=== PATIENT | female | born 1980 | race Caucasian/White ===

== ENCOUNTER 2024-01-23 20:01 | Emergency (ER) | payer OTHER ==
[~2024-01-23] VITALS: Wt 74.1 kg
[2024-01-23] MEDS ORDERED: NS 1,000 ML IV SCH (20:30)
[2024-01-23] MEDS ORDERED: droPERidol 2.5 MG/ML 2 ML VIAL IV ONE (20:30)
[2024-01-23 21:03] LABS: BASO # 0.01 K/mm3 (0.02-0.10); HEMATOCRIT 31.9 % (37.0-47.0); HEMOGLOBIN 9.2 g/dL (12.5-16.0); MEAN CELL VOLUME 73 fl (78-100); MEAN CORPUSCULAR HEMOGLOBIN 21 pg (27-31); MEAN CORPUSCULAR HGB CONC 29 g/dL (33-37); MEAN PLATELET VOLUME 10.8 fl (7.4-10.4); MONO # 1.12 K/mm3 (0.20-0.80); NEU # 6.78 K/mm3 (1.40-6.50); RED BLOOD COUNT 4.39 M/mm3 (4.10-5.30)
[2024-01-23 21:06] LABS: ALBUMIN 4.5 g/dL (3.5-5.0)
[2024-01-23 21:07] LABS: CALCIUM 8.9 mg/dL (8.3-10.5)
[2024-01-23 21:09] LABS: TOTAL PROTEIN 7.2 g/dL (6.4-8.3)
[2024-01-23 21:10] LABS: TOTAL BILIRUBIN 0.6 mg/dL (0.2-1.2)
[2024-01-23] MEDS ORDERED: Potassium Chloride 100 ML IV ONE (21:15)
[2024-01-23 22:19] LABS: URINE APPEARANCE CLOUDY (CLEAR); URINE COLOR YELLOW (YELLOW); URINE GLUCOSE NEGATIVE (NEGATIVE); URINE KETONE 3+ (NEGATIVE); URINE PROTEIN(semi-quant) 2+ (NEGATIVE)
[2024-01-23 22:20] LABS: URINE BILIRUBIN 1+ (NEGATIVE); URINE BLOOD TRACE-INTACT (NEGATIVE); URINE LEUKOCYTE ESTERASE NEGATIVE (NEGATIVE); URINE NITRATE NEGATIVE (NEGATIVE); URINE WBC 0-1 /hpf (0-3)
[2024-01-23 22:21] LABS: URINE MUCUS PRESENT (NOT PRESENT)
[2024-01-23] MEDS ORDERED: POTASSIUM CHLO10 ME8 PO (22:45)
[2024-01-23] MEDS ORDERED: PHENERGAN 25 TA25 MG PO (22:45)
[2024-01-23 23:11] VITALS: BP 155/84
== END 2024-01-23 23:11 | disposition home or self-care (01) ==
LOC: ED 20:01
PROVIDERS: Physician Assistant
DX: R10.13 Epigastric pain (principal); E87.6 Hypokalemia; F12.90 Cannabis use, unspecified, uncomplicated
CPT/HCPCS: J1790; J3480; J7030